=== PATIENT | female | born 1975 | race Caucasian/White ===

== ENCOUNTER → 2021-04-30 | Outpatient (CLI) | payer BC | LOC: RAD 08:00 | DX: G43.019 Migraine without aura, intractable, without status migrainosus (principal) | CPT/HCPCS: Q9967 ==

== ENCOUNTER → 2024-04-22 | Outpatient (CLI) | payer BC | LOC: MAMMO 13:30 | DX: Z12.31 Encounter for screening mammogram for malignant neoplasm of breast (principal) ==